=== PATIENT | female | born 1980 | race Caucasian/White ===

== ENCOUNTER 2018-02-06 00:32 | Emergency (ER) | payer MEDICARE, OTHER ==
[2018-02-06 00:32] VITALS: BMI 19.5
--- NOTE | 2018-02-06 03:33 | ED PDOC ---
HPI: Psych/Substance Abuse Time Seen by Provider: 02/06/18 01:02 Chief Complaint (Nursing): Psychiatric Evaluation History Per: Patient Onset/Duration Of Symptoms: Days Current Symptoms Are (Timing): Still Present Additional Complaint(s): Patient with HIV presenting with odd behavior, patient states her presenting complaint is "poverty" and she feels like the "world is not giving her help." Patient states she is hungry as well. Patient is uncooperative with history taking. Does not answer if she is having SI or HI. Past Medical History Reviewed: Historical Data, Nursing Documentation, Vital Signs Vital Signs: Last Vital Signs Temp 97.3 F L 02/06/18 00:34 Pulse 82 02/06/18 00:34 Resp 16 02/06/18 00:34 BP 105/73 02/06/18 00:34 Pulse Ox 97 02/06/18 00:34 - Medical History PMH: HIV, Pneumonia - Family History Family History: States: Unknown Family Hx - Home Medications Home Medications: Ambulatory Orders Medication Instructions Recorded Unobtainable 02/06/18 - Allergies Allergies/Adverse Reactions: Allergies Allergy/AdvReac Type Severity Reaction Status Date / Time Penicillins Allergy ITCHING Verified 01/19/16 20:58 Review of Systems Review Of Systems: ROS cannot be obtained secondary to pt's inabilty to answer questions. Physical Exam - Reviewed Nursing Documentation Reviewed: Yes Vital Signs Reviewed: Yes - Physical Exam Appears: Positive for: Non-toxic, No Acute Distress. Negative for: Well ( Cachectic) Head Exam: Positive for: ATRAUMATIC, NORMAL INSPECTION, NORMOCEPHALIC Skin: Positive for: Normal Color, Warm, DRY Eye Exam: Positive for: EOMI, Normal appearance, PERRL ENT: Positive for: Normal ENT Inspection Neck: Positive for: Normal, Painless ROM Cardiovascular/Chest: Positive for: Regular Rate, Rhythm Respiratory: Positive for: CNT, Normal Breath Sounds Gastrointestinal/Abdominal: Positive for: Normal Exam, Soft Back: Positive for: Normal Inspection Extremity: Positive for: Normal ROM Neurologic/Psych: Positive for: Alert, copper plater II-XII, Oriented, Mood/Affect ( Flattened, uncooperative). Negative for: Motor/Sensory Deficits - Laboratory Results Result Diagrams: 02/06/18 07:00 02/06/18 02:14 - ECG O2 Sat by Pulse Oximetry: 97 Pulse Ox Interpretation: Normal Medical Decision Making Medical Decision Makin A/P: Hx of HIV and unknown psych history presenting with mood disturbance -no acute distress, normal vitals -patient is very poor historian, unclear if patient is threat to herself or not -will get labwork, urine, and crisis eval 07:00 -Patient will be endorsed to Dr. Haro, pending labs and reevaluation Disposition - Clinical Impression Clinical Impression: Bizarre behavior - Patient ED Disposition Is Patient to be Admitted: Transfer of Care - Disposition Disposition: Transfer of Care Disposition Time: 07:00 Condition: STABLE Forms: [employer] (Filipino) Patient Signed Over To: Sonja Haro Handoff Comments: pending labs and reevaluation
--- NOTE | 2018-02-06 07:17 | ED PDOC ---
- Laboratory Results Result Diagrams: 02/06/18 07:00 02/06/18 02:14 - ECG Interpretation Of ECG: NSR @ 85, no ST-T changes. O2 Sat by Pulse Oximetry: 97 Medical Decision Making Medical Decision Makin:00 Patient care is endorsed from Dr. Vines to Dr. Haro pending crisis evaluation, labs and reevaluation. MEDICAL CLEARANCE: Pt medically cleared for psychiatric admission. Scribe Attestation: Documented by Daily Dao, acting as a scribe for Sonja Haro MD. Provider Scribe Attestation: All medical entries made by the Scribe were at my direction and personally dictated by me. I have reviewed the chart and agree that the record accurately reflects my personal performance of the history, physical exam, medical decision making, and the department course for this patient. I have also personally directed, reviewed, and agree with the discharge instructions and disposition. Disposition - Clinical Impression Clinical Impression: Bizarre behavior - POA Present On Arrival: None - Disposition Disposition: Transfer of Care Disposition Time: 19:00 Condition: STABLE Forms: [employer] (Turkish)
[2018-02-06 07:18] LABS: BASO # 0.1 K/uL (0.0-0.2); BASO % 0.9 % (0.0-2.0); EOS # 0.1 K/uL (0.0-0.7); EOS % 1.6 % (0.0-4.0); HEMOGLOBIN 12.4 g/dL (12.0-16.0); LYMPH # 2.6 K/uL (1.0-4.3); LYMPH % 34.1 % (20.0-40.0); MEAN CELL VOLUME 101.2 fl (81.0-99.0); MEAN CORPUSCULAR HEMOGLOBIN 34.1 pg (27.0-31.0); MEAN CORPUSCULAR HGB CONC 33.7 g/dL (33.0-37.0); MEAN PLATELET VOLUME 7.9 fl (7.2-11.7); MONO # 0.5 K/uL (0.0-0.8); MONO % 7.1 % (0.0-10.0); NEUT # 4.3 K/uL (1.8-7.0); NEUT % 56.3 % (50.0-75.0); RBC 3.63 Mil/uL (3.80-5.20); RED CELL DISTRIBUTION WIDTH 14.1 % (11.5-14.5); WHITE BLOOD COUNT 7.5 K/uL (4.8-10.8)
[2018-02-06 07:37] LABS: ACETAMINOPHEN < 10.0 ug/ml (10.0-30.0); SALICYLATE < 1.0 mg/dl
--- NOTE | 2018-02-06 09:43 | RAD ---
PROCEDURE: CHEST RADIOGRAPH, 1 VIEW HISTORY: bizarre behavior COMPARISON: Chest radiograph dated 12/30/2015. FINDINGS: LUNGS: Diffuse hazy appearance of both lungs. PLEURA: No pneumothorax or pleural fluid seen. CARDIOVASCULAR: Normal. OSSEOUS STRUCTURES: Scoliosis. VISUALIZED UPPER ABDOMEN: Partially imaged inferior vena cava filter. OTHER FINDINGS: None. IMPRESSION: Diffuse hazy appearance both lungs which may be related to vascular congestion versus ground-glass opacities.
[2018-02-06 12:32] LABS: BLOOD UREA NITROGEN 23 mg/dl (7-17); CALCIUM 9.1 mg/dL (8.4-10.2); GFR AFRICAN-AMERICAN > 60; GFR NON-AFRICAN AMERICAN > 60
[2018-02-06 13:11] LABS: SQUAMOUS EPITHIAL 2 /hpf (0-5); URINE BILIRUBIN NEGATIVE (NEGATIVE); URINE BLOOD NEGATIVE (NEGATIVE); URINE CLARITY CLEAR (Clear); URINE COLOR YELLOW (YELLOW); URINE GLUCOSE (UA) NEG (Normal); URINE LEUKOCYTE ESTERASE NEG Leu/uL (Negative); URINE PROTEIN NEGATIVE (NEGATIVE); URINE UROBILINOGEN 0.2-1.0 mg/dL (0.2-1.0)
[2018-02-06 13:39] LABS: BARBITURATES, UR NEGATIVE (NEGATIVE); BENZODIAZEPINES, UR NEGATIVE (NEGATIVE); OPIATES, UR NEGATIVE (NEGATIVE); PHENCYCLIDINE, UR NEGATIVE (NEGATIVE)
--- NOTE | 2018-02-06 15:13 | ED PDOC ---
- Laboratory Results Result Diagrams: 02/06/18 07:00 02/06/18 02:14 - ECG O2 Sat by Pulse Oximetry: 97 Medical Decision Making Medical Decision Makin:00 Patient care is endorsed from Dr. Haro to Dr. Min pending [facility] [place] evaluation. Scribe Attestation: Documented by Daily Dao, acting as a scribe for Shantal Min MD. Provider Scribe Attestation: All medical entries made by the Scribe were at my direction and personally dictated by me. I have reviewed the chart and agree that the record accurately reflects my personal performance of the history, physical exam, medical decision making, and the department course for this patient. I have also personally directed, reviewed, and agree with the discharge instructions and disposition. Disposition Counseled Patient/Family Regarding: Studies Performed, Diagnosis - Clinical Impression Clinical Impression: Bizarre behavior - POA Present On Arrival: None - Disposition Disposition: Transfer of Care Disposition Time: 12:00 Condition: STABLE Patient Signed Over To: Clark Vines
--- NOTE | 2018-02-07 06:34 | ED PDOC ---
- Laboratory Results Result Diagrams: 02/06/18 07:00 02/06/18 02:14 - ECG O2 Sat by Pulse Oximetry: 97 Pulse Ox Interpretation: Normal Medical Decision Making Medical Decision Makin Endorsed to me by Dr. Min [place] [facility] [place] [facility] [address] Haro [place] [facility] Disposition - Clinical Impression Clinical Impression: Bizarre behavior - POA Present On Arrival: None - Disposition Disposition: Transfer of Care Disposition Time: 07:00 Condition: STABLE Forms: [employer] (Persian) Patient Signed Over To: Sonja Haro Handoff Comments: pending bed [place] [facility]
--- NOTE | 2018-02-07 07:10 | ED PDOC ---
- Laboratory Results Result Diagrams: 02/06/18 07:00 02/06/18 02:14 - ECG O2 Sat by Pulse Oximetry: 97 (RA) Pulse Ox Interpretation: Normal Medical Decision Making Medical Decision Making: Patient endorsed to me by Dr. Vines @ 0700, [place] [facility] [place] Scribe Attestation: Documented by Evie Bauer, acting as a scribe for Dr. Sonja Haro MD. Provider Scribe Attestation: All medical record entries made by the Scribe were at my direction and personally dictated by me. I have reviewed the chart and agree that the record accurately reflects my personal performance of the history, physical exam, medical decision making, and the department course for this patient. I have also personally directed, reviewed, and agree with the discharge instructions and disposition. Disposition - Clinical Impression Clinical Impression: Bizarre behavior - POA Present On Arrival: None - Disposition Disposition: Transfer of Care Disposition Time: 15:00 Condition: STABLE Forms: [employer] (Sierra Leonean) Patient Signed Over To: Shantal Min
--- NOTE | 2018-02-07 09:39 | CP.PCM.CON ---
History of Present Illness - History of Present Illness History of Present Illness: Psychiatry consult note CC: "I'm waiting for sandwich." HPI: 37 yo homeless female, presented to the ED w/ bizarre affect/behavior and disorganized speech. She was screened by [facility] and determined to meet criteria for involuntary commitment. 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 Impression: 37 yo female, likely w/ primary psychotic disorder (schizophrenia vs schizoaffective disorder), accepted for involuntary admission at [facility], pending bed and transfer. Past Patient History - Past Social History Smoking Status: Light Smoker < 10 Cigarettes Daily - CARDIAC Hx Cardiac Disorders: (Unsure) Hx Hypertension: (Unsure) - PULMONARY Hx Pneumonia: Yes - NEUROLOGICAL HX Cerebrovascular Accident: (Unsure) Hx Seizures: (Unsure) - HEMATOLOGICAL/ONCOLOGICAL Hx Human Immunodeficiency Virus (HIV): Yes - GENITOURINARY/GYNECOLOGICAL Hx Sexually Transmitted Disorders: (Unsure) - PSYCHIATRIC Hx Substance Use: No - SURGICAL HISTORY Hx Surgeries: No Meds Allergies/Adverse Reactions: Allergies Allergy/AdvReac Type Severity Reaction Status Date / Time Penicillins Allergy ITCHING Verified 02/07/18 07:17 Results - Vital Signs Recent Vital Signs: Last Vital Signs Temp 98.7 F 02/07/18 06:55 Pulse 82 02/07/18 06:55 Resp 18 02/07/18 06:55 BP 98/57 L 02/07/18 06:55 Pulse Ox 97 02/07/18 07:10 - Labs Result Diagrams: 02/06/18 07:00 02/06/18 02:14 Labs: Laboratory Results - last 24 hr 02/06/18 02/06/18 02/06/18 02:14 13:05 13:05 Sodium 139 Potassium 4.0 Chloride 106 Carbon Dioxide 19 L Anion Gap 18 BUN 23 H Creatinine 0.7 Est GFR ( Amer) > 60 Est GFR (Non-Af Amer) > 60 Random Glucose 99 Calcium 9.1 Urine Color Yellow Urine Clarity Clear Urine pH 6.0 Ur Specific [place] 1.020 Urine Protein Negative Urine Glucose (UA) Neg Urine Ketones Negative Urine Blood Negative Urine Nitrate Negative Urine Bilirubin Negative Urine Urobilinogen 0.2-1.0 Ur Leukocyte Esterase Neg Urine RBC (Auto) 1 Urine Microscopic WBC 1 Ur Squamous Epith Cells 2 Urine Opiates Screen Negative Urine Methadone Screen Negative Ur Barbiturates Screen Negative Ur Phencyclidine Scrn Negative Ur Amphetamines Screen Negative U Benzodiazepines Scrn Negative U Oth Cocaine Metabols Positive H U Cannabinoids Screen Negative Alcohol, Quantitative < 10
--- NOTE | 2018-02-07 15:17 | ED PDOC ---
- Laboratory Results Result Diagrams: 02/06/18 07:00 02/06/18 02:14 - ECG O2 Sat by Pulse Oximetry: 97 (RA) Medical Decision Making Medical Decision Makin:00 Patient care endorsed from Dr. Haro to Dr. Min pending bed assignment at [facility] [place]. Scribe Attestation: Documented by Daily Dao, acting as a scribe for Shantal Min MD. Provider Scribe Attestation: All medical entries made by the Scribe were at my direction and personally dictated by me. I have reviewed the chart and agree that the record accurately reflects my personal performance of the history, physical exam, medical decision making, and the department course for this patient. I have also personally directed, reviewed, and agree with the discharge instructions and disposition. Disposition - Clinical Impression Clinical Impression: Bizarre behavior - POA Present On Arrival: None - Disposition Disposition: Transfer of Care Disposition Time: 12:00 Condition: STABLE Patient Signed Over To: Mil Escamilla
--- NOTE | 2018-02-07 23:58 | ED PDOC ---
- Laboratory Results Result Diagrams: 02/06/18 07:00 02/06/18 02:14 - ECG O2 Sat by Pulse Oximetry: 97 (RA) Medical Decision Making Medical Decision Makin Patient signed out to this provider from Dr. Min pending [facility] bed availability. 0700 Patient will be signed out to Dr. Arevalo pending [facility] bed availability. Scribe Attestation: Documented by Poppy Trimble, acting as a scribe for Mil Escamilla MD. Provider Scribe Attestation: All medical record entries made by the Scribe were at my direction and personally dictated by me. I have reviewed the chart and agree that the record accurately reflects my personal performance of the history, physical exam, medical decision making, and the department course for this patient. I have also personally directed, reviewed, and agree with the discharge instructions and disposition. Disposition - Clinical Impression Clinical Impression: Bizarre behavior - POA Present On Arrival: None - Disposition Disposition: Transfer of Care Disposition Time: 07:00 Condition: STABLE Forms: [employer] (Indonesian) Patient Signed Over To: Raul Arevalo III Handoff Comments: pending [facility] bed availability
--- NOTE | 2018-02-08 07:13 | ED PDOC ---
- Laboratory Results Result Diagrams: 02/06/18 07:00 02/06/18 02:14 - ECG O2 Sat by Pulse Oximetry: 97 (RA) Pulse Ox Interpretation: Normal Medical Decision Making Medical Decision Making: Recd 7am pending bed at [facility]. No issues throughout shift. Endorse to Dr Easley 7pm pending [facility] bed availability Disposition Counseled Patient/Family Regarding: Studies Performed, Diagnosis, Need For Followup - Clinical Impression Clinical Impression: Bizarre behavior - POA Present On Arrival: None - Disposition Disposition: Transfer of Care Disposition Time: 18:31 Condition: STABLE Forms: [employer] (Yakut) Patient Signed Over To: Carlos Easley
--- NOTE | 2018-02-08 11:31 | CARD ---
APPROVED REPORT EKG Measurement Heart [id number] <Conclusion> Normal sinus rhythm Normal ECG
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
--- NOTE | 2018-02-08 19:14 | ED PDOC ---
- Laboratory Results Result Diagrams: 02/06/18 07:00 02/06/18 02:14 - ECG O2 Sat by Pulse Oximetry: 97 (RA) - Progress ED Course And Treament: 1900: Dr. Escamilla to take over care [place] [facility] [place]. Disposition - Clinical Impression Clinical Impression: Bizarre behavior - POA Present On Arrival: None - Disposition Disposition: Transfer of Care Disposition Time: 19:14 Condition: STABLE
--- NOTE | 2018-02-08 19:17 | ED PDOC ---
- Laboratory Results Result Diagrams: 02/06/18 07:00 02/06/18 02:14 - ECG O2 Sat by Pulse Oximetry: 97 (RA) Medical Decision Making Medical Decision Makin:00 -Patient endorsed to me by Dr. Easley, pending [facility] bed. 2200 Patient resting comfortably. Vitals stable. 0000 Patient resting comfortably. Vitals stable. 0200 Patient resting comfortably. Vitals stable. 0400 Patient resting comfortably. Vitals stable. 0600 Patient resting comfortably. Vitals stable. 0700 Patient resting comfortably. Vitals stable. Patient will be signed out to Dr. Byrnes pending [facility] [place] [place] bed availability. Scribe Attestation: Documented by Poppy Trimble acting as a scribe for Mil Escamilla MD. Scribe Attestation: All medical record entries made by the Scribe were at my direction and personally dictated by me. I have reviewed the chart and agree that the record accurately reflects my personal performance of the history, physical exam, medical decision making, and the department course for this patient. I have also personally directed, reviewed, and agree with the discharge instructions and disposition. Disposition - Clinical Impression Clinical Impression: Bizarre behavior - POA Present On Arrival: None - Disposition Disposition: Transfer of Care Disposition Time: 07:00 Condition: STABLE Forms: [employer] (Slovak) Patient Signed Over To: Vicente Byrnes Handoff Comments: Pending [facility] [place] [place] bed availability
--- NOTE | 2018-02-09 10:16 | CP.PCM.CON ---
History of Present Illness - History of Present Illness History of Present Illness: Psychiatry consult follow-up note CC: "I can't give you information unless you have a warrant." HPI: 37 yo homeless female, presented to the ED w/ bizarre affect/behavior and disorganized speech. She was screened by [facility] and determined to meet criteria for involuntary commitment. Patient continues to be uncooperative with interview, stating that the designer/writer needs a warrant before she will give any information and that she does not believe she belongs in the hospital. She denies depression/anxiety/AH/VH, but is guarded and has non-linear, over productive speech when she does choose to talk. She is currently refusing all psychotropic medications. Impression: 37 yo female, likely w/ primary psychotic disorder (schizophrenia vs schizoaffective disorder), accepted for involuntary admission at [facility], pending bed and transfer. Past Patient History - Past Social History Smoking Status: Light Smoker < 10 Cigarettes Daily - CARDIAC Hx Cardiac Disorders: (Unsure) Hx Hypertension: (Unsure) - PULMONARY Hx Pneumonia: Yes - NEUROLOGICAL HX Cerebrovascular Accident: (Unsure) Hx Seizures: (Unsure) - HEMATOLOGICAL/ONCOLOGICAL Hx Human Immunodeficiency Virus (HIV): Yes - GENITOURINARY/GYNECOLOGICAL Hx Sexually Transmitted Disorders: (Unsure) - PSYCHIATRIC Hx Substance Use: No - SURGICAL HISTORY Hx Surgeries: No Meds Allergies/Adverse Reactions: Allergies Allergy/AdvReac Type Severity Reaction Status Date / Time Penicillins Allergy ITCHING Verified 02/07/18 07:17 Results - Vital Signs Recent Vital Signs: Last Vital Signs Temp 98.3 F 02/09/18 07:30 Pulse 75 02/09/18 07:30 Resp 15 02/09/18 07:30 BP 135/54 L 02/09/18 07:30 Pulse Ox 99 02/09/18 07:30 - Labs Result Diagrams: 02/06/18 07:00 02/06/18 02:14
--- NOTE | 2018-02-09 14:41 | ED PDOC ---
- Laboratory Results Result Diagrams: 02/06/18 07:00 02/06/18 02:14 - ECG O2 Sat by Pulse Oximetry: 99 Medical Decision Making Medical Decision Making: Pt becoming more agitated and umnable to redirect. Will medicate with Haldol and Ativan for psychotic behavior and will place in restraints. Disposition - Clinical Impression Clinical Impression: Bizarre behavior - POA Present On Arrival: None - Disposition Disposition: Transfer of Care Disposition Time: 17:00 Condition: STABLE Forms: [employer] (Romanian) Patient Signed Over To: Carlos Easley
--- NOTE | 2018-02-10 00:06 | ED PDOC ---
- Laboratory Results Result Diagrams: 02/06/18 07:00 02/06/18 02:14 - ECG O2 Sat by Pulse Oximetry: 99 - Progress ED Course And Treament: 1700: Took over care from Dr. Byrnes. Eliel on transfer. Stable. 0346: Dr. Vines to take over care. [facility] transfer pending. Disposition - Clinical Impression Clinical Impression: Bizarre behavior - POA Present On Arrival: None - Disposition Disposition: Transfer of Care Disposition Time: 00:06 Condition: STABLE Patient Signed Over To: Clark Vines
--- NOTE | 2018-02-10 02:00 | ED PDOC ---
- Laboratory Results Result Diagrams: 02/06/18 07:00 02/06/18 02:14 - ECG O2 Sat by Pulse Oximetry: 99 (RA) Pulse Ox Interpretation: Normal Medical Decision Making Medical Decision Makin:00 --Transfer of care endorsed to me by Dr. Easley pending [facility] bed availability. 0300 Patient comfortable 0500 Patient transferred in stable condition to [facility] Scribe Attestation: Documented by Areli Hernandez, acting as a scribe for Clark Vines MD Provider Scribe Attestation: All medical record entries made by the Scribe were at my direction and personally dictated by me. I have reviewed the chart and agree that the record accurately reflects my personal performance of the history, physical exam, medical decision making, and the department course for this patient. I have also personally directed, reviewed, and agree with the discharge instructions and disposition Disposition - Clinical Impression Clinical Impression: Bizarre behavior - POA Present On Arrival: None - Disposition Disposition: Other Institution ([facility]) Disposition Time: 05:08 Condition: STABLE Forms: [employer] (Rwandan)
[2018-02-10 03:51] VITALS: PULSE 74
[2018-02-10 05:16] VITALS: BP 102/63; RESP 17; TEMP 98.5
[2018-02-10 10:59] VITALS: O2SAT 97
== END 2018-02-10 05:13 | disposition short-term general hospital (02) ==
LOC: H.ER 00:32
DX: R46.89 Other symptoms and signs involving appearance and behavior (principal); Z00.8 Encounter for other general examination; F17.210 Nicotine dependence, cigarettes, uncomplicated; Z59.0 Homelessness; Z86.59 Personal history of other mental and behavioral disorders; I10 Essential (primary) hypertension; Z86.73 Personal history of transient ischemic attack (TIA), and cerebral infarction without residual deficits; Z88.0 Allergy status to penicillin
CPT/HCPCS: 71045; 80048; 81003; 81025; 85025; 93005; 96372; 99285; G0480; J1630; J2060

== ENCOUNTER 2018-05-22 20:44 | Emergency (ER) | payer MEDICARE, OTHER ==
[2018-05-22 20:44] VITALS: BMI 16.8
[2018-05-22 20:53] VITALS: BP 117/79; PULSE 87; RESP 20; TEMP 97.9; O2SAT 100
--- NOTE | 2018-05-22 20:57 | ED PDOC ---
HPI: Psych/Substance Abuse Time Seen by Provider: 05/22/18 20:49 History Per: Patient History/Exam Limitations: no limitations Onset/Duration Of Symptoms: Mins Suicide/Self Injury Attempted (Context): None Modifying Factor(s): None Severity: None Involuntary Hold By: Local Law Enforcement Additional Complaint(s): Patient brought to the ER for evaluation of medical and psychiatric clearance. Patient has no complaints at this time except feeling hungry and requesting a sanitary pad for her menstruation. Denies suicidal or homicidal ideation. Denies any other complaints. Currently alert, oriented. Past Medical History Reviewed: Historical Data, Nursing Documentation, Vital Signs Vital Signs: Last Vital Signs Temp 97.9 F 05/22/18 20:50 Pulse 87 05/22/18 20:50 Resp 20 05/22/18 20:50 BP 117/79 05/22/18 20:50 Pulse Ox 100 05/22/18 20:50 - Medical History PMH: HIV, Pneumonia Comment Only: Diabetes (Unsure), Hepatitis (Unsure), HTN (Unsure), Seizures (Unsure), Sexually Transmitted Disease (Unsure) - Family History Family History: States: Unknown Family Hx - Home Medications Home Medications: Ambulatory Orders Medication Instructions Recorded Clotrimazole 1% Cream [Lotrimin 1% 1 applic TOP BID #2 tube 05/20/18 CREAM] - Allergies Allergies/Adverse Reactions: Allergies Allergy/AdvReac Type Severity Reaction Status Date / Time Penicillins Allergy ITCHING Verified 05/22/18 20:50 Review of Systems ROS Statement: Except As Marked, All Systems Reviewed And Found Negative Physical Exam - Reviewed Nursing Documentation Reviewed: Yes Vital Signs Reviewed: Yes - Physical Exam Appears: Positive for: Well (Cachectic, chronically ill appearing), Non-toxic, No Acute Distress Head Exam: Positive for: ATRAUMATIC, NORMAL INSPECTION, NORMOCEPHALIC Skin: Positive for: Normal Color, Warm, DRY Eye Exam: Positive for: EOMI, Normal appearance, PERRL ENT: Positive for: Normal ENT Inspection Neck: Positive for: Normal, Painless ROM Cardiovascular/Chest: Positive for: Regular Rate, Rhythm Respiratory: Positive for: CNT, Normal Breath Sounds Gastrointestinal/Abdominal: Positive for: Normal Exam, Soft Back: Positive for: Normal Inspection Extremity: Positive for: Normal ROM Neurologic/Psych: Positive for: Alert, 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 Negative for: Motor/Sensory Deficits - ECG O2 Sat by Pulse Oximetry: 100 Pulse Ox Interpretation: Normal Medical Decision Making Medical Decision Making: Patient has no acute medical or psychiatric complaint warranting ED evaluation. Will discharge into law enforcement custody. Disposition - Clinical Impression Clinical Impression: Bizarre behavior, Adjustment disorder - Disposition Referrals: [facility] [Outside] Disposition: Discharged/Transfer to Law Enforcement Disposition Time: 20:59 Condition: STABLE Additional Instructions: Patient is medically and psychiatrically cleared for incarceration. Instructions: Adjustment Disorder
== END 2018-05-22 21:24 | disposition home or self-care (01) ==
LOC: H.ER 20:44
DX: F43.20 Adjustment disorder, unspecified (principal); Z00.8 Encounter for other general examination